=== PATIENT | male | born 1980 | race Caucasian/White ===

== ENCOUNTER 2018-10-04 01:41 | Emergency (ER) | payer BC ==
[2018-10-04] MEDS: KETOROLAC 30 MG INJ IV (03:00)
[2018-10-04 03:21] LABS: ADD MAN DIFF? NO
[2018-10-04 03:23] LABS: BASOPHILS % 0.3 % (0.0-2.0); EOSINOPHILS # 0.2 10^3/ul (0.0-0.5); HEMATOCRIT 45.7 % (42.0-52.0); HEMOGLOBIN 15.4 g/dl (14.0-18.0); LYMPHOCYTES # 3.5 10^3/ul (0.8-2.9); LYMPHOCYTES % 36.5 % (15.0-51.0); MEAN CORPUSCULAR HEMOGLOBIN 31.4 pg (29.0-33.0); MEAN CORPUSCULAR HGB CONC 33.7 g/dl (32.0-37.0); MEAN CORPUSCULAR VOLUME 93.3 fl (82.0-101.0); MEAN PLATELET VOLUME 10.4 fl (7.4-10.4); MONOCYTE # 0.8 10^3/ul (0.3-0.9); NEUTROPHIL # 5.1 10^3/ul (1.6-7.5); NEUTROPHILS % 52.8 % (39.0-77.0); PLATELET COUNT 256 10^3/UL (140-415); RED CELL DISTRIBUTION WIDTH 13.2 % (11.5-14.5)
[2018-10-04 03:23] LABS: WHITE BLOOD COUNT 9.6 10^3/ul (4.8-10.8)
[2018-10-04 03:32] LABS: D-DIMER 321.26 ng/ml (<460)
[2018-10-04 04:17] LABS: ANION GAP 4 (5-13); BLOOD UREA NITROGEN 23 mg/dl (7-20); CALCIUM 9.5 mg/dl (8.4-10.2); CARBON DIOXIDE 32 mmol/L (21-31); CHLORIDE 102 mmol/L (97-110); CREATININE 1.05 mg/dl (0.61-1.24); Estimated GFR > 60 mL/min (>60); GLUCOSE 101 mg/dl (70-220); POTASSIUM 4.5 mmol/L (3.5-5.1); SODIUM 138 mmol/L (135-144)
[2018-10-04 04:28] LABS: TROPONIN-I < 0.012 ng/ml (0.000-0.120)
== END 2018-10-04 05:15 | disposition home or self-care (01) ==
LOC: E/R 01:41
DX: R07.89 Other chest pain (principal)
CPT/HCPCS: 36415; 71045; 80048; 84484; 85025; 85378; 93005; 96374; 99285-25